=== PATIENT | female | born 1985 | race Caucasian/White ===

== ENCOUNTER 2016-09-26 15:28 | Outpatient (CLI) | payer OTHER ==
[2016-09-28 17:26] LABS: Chlamydia by PCR Not Detected (NotDetected); GC by PCR Not Detected (NotDetected)
== END 2016-09-26 15:29 | disposition home or self-care (01) ==
LOC: MADLABBHPM 15:28
PROVIDERS: ATTEND Family Medicine
DX: Z01.419 Encounter for gynecological examination (general) (routine) without abnormal findings (principal)
CPT/HCPCS: 87491; 87591; 88142; G0123

== ENCOUNTER 2018-09-18 16:57 | Outpatient (CLI) | payer OTHER ==
--- NOTE | 2018-09-18 17:50 | RAD ---
RADIOGRAPH ABDOMEN 1 VIEW: 09/18/18 HISTORY: 32-year-old female with constipation. FINDINGS: Bowel gas pattern is nonobstructed. There are bilateral Essure short linear wires in the pelvis. No e vidence of organomegaly. IMPRESSION: 1. Nonobstructive bowel gas pattern. 2. Status post bilateral fallopian tube occlusion procedure. POS: [facility]NAIT
== END 2018-09-18 16:58 | disposition home or self-care (01) ==
LOC: MADRAD 16:57
PROVIDERS: ATTEND Family Medicine
DX: K59.01 Slow transit constipation (principal); Z98.890 Other specified postprocedural states
CPT/HCPCS: 74018